=== PATIENT | female | born 1950 | race Caucasian/White ===

== ENCOUNTER 2017-02-22 21:02 | Emergency (ER) | payer MEDICARE, BC ==
[2017-02-22 21:42] VITALS: BP 140/86
--- NOTE | 2017-02-22 21:58 | EDM.PDOC ---
ED HPI GENERAL MEDICAL PROBLEM - General Chief Complaint: Bite:Animal, Insect Stated Complaint: WASP STING L PALM Time Seen by Provider: 02/22/17 21:46 Source of Information: Reports: Patient History Limitations: Reports: No Limitations - History of Present Illness INITIAL COMMENTS - FREE TEXT/NARRATIVE: History of present illness: [67-year-old female was stung by a wasp on her left hand yesterday presenting with some swelling of the hyperthenar eminence of her left hand. She has no respiratory symptoms she has some pain and discomfort as well.] Review of systems: As per history of present illness and below otherwise all systems reviewed and negative. Past medical history: As per history of present illness and as reviewed below otherwise noncontributory. Surgical history: As per history of present illness and as reviewed below otherwise noncontributory. Social history: No reported history of drug or alcohol abuse. Family history: As per history of present illness and as reviewed below otherwise noncontributory. Physical exam: HEENT: Atraumatic, normocephalic, pupils reactive, negative for conjunctival pallor or scleral icterus, mucous membranes moist, throat clear, neck supple, nontender, trachea midline. Lungs: Clear to auscultation, breath sounds equal bilaterally, Heart: S1S2, regular, negative for clicks, rubs, or JVD. Abdomen: Soft, nondistended, nontender. Extremities: Examination of left hand reveals swelling of the hyperthenar eminence with some erythema and mottling of the skin and tenderness to palpation. There is no warmth or evidence of infection Neuro: Awake, alert, oriented. Exam nonfocal. Diagnostics: [] Therapeutics: [] Impression: [Wasp sting left hand] Plan: [Providing her prednisone 20 mg a day for 5 days and recommended she take over- the-counter Benadryl.] Definitive disposition and diagnosis as appropriate pending reevaluation and review of above. Left Hand Pain Score (Numeric/FACES): 2 - Related Data Allergies Allergy/AdvReac Type Severity Reaction Status Date / Time clarithromycin [From Biaxin] Allergy Severe muscle Verified 02/22/17 21:53 spasm and shaking Home Meds: Home Meds Calcium Carb/Magnesium Oxid/D3 [Calcium Magnesium + D] 1 each PO BID 05/21/13 [ History] Cholecalciferol (Vitamin D3) [Vitamin D] 400 unit PO DAILY 05/21/13 [History] Flaxseed [Flaxseed Oil] 2,000 mg PO DAILY 05/21/13 [History] Gluc/Barak-Msm#1/Vit C/Karthikeyan/Bor [Pottneo-Xcmoq-VLM Complex Cplt] 1 each PO BID [History] Lactobac Cmb #3/Fos/Pantethine [Probiotic & Acidophilus] 1 each PO DAILY [History] Lisinopril [Lisinopril] 10 mg PO DAILY 05/21/13 [History] Multivitamin [Multi-Vitamin Daily] 1 each PO DAILY 05/21/13 [History] Triamterene/Hydrochlorothiazid [Triamterene-HCTZ 37.5-25 MG] 1 each PO DAILY [History] Social & Family History - Tobacco Use Years of Tobacco use: 20 Second Hand Smoke Exposure: No - Alcohol Use Days Per Week of Alcohol Use: 5 Number of Drinks Per Day: 1 Total Drinks Per Week: 5 - Recreational Drug Use Recreational Drug Use: No ED ROS GENERAL - Review of Systems Review Of Systems: ROS reveals no pertinent complaints other than HPI. ED EXAM, ANIMAL BITE - Physical Exam Exam: See Below Course - Vital Signs Last Recorded V/S: Last Vital Signs Temp 35.9 C 02/22/17 21:50 Pulse 93 02/22/17 21:50 Resp 16 02/22/17 21:50 BP 140/86 02/22/17 21:50 Pulse Ox 94 L 02/22/17 21:50 Departure - Departure Time of Disposition: 21:57 Disposition: Home, Self-Care 01 Condition: Good Clinical Impression: Sting, wasp Qualifiers: Encounter type: initial encounter Injury intent: accidental or unintentional Qualified Code(s): T63.461A - Toxic effect of venom of wasps, accidental ( unintentional), initial encounter - Discharge Information Referrals: Esperanza Hendrix HEARING DOG TRAINER [Primary Care Provider] - Additional Instructions: You can take Benadryl 1-2 tablets every 4 hours for this to help with the swelling and discomfort along with Advil or Tylenol. The Benadryl will likely make you sleepy but will help.
== END 2017-02-22 22:16 | disposition home or self-care (01) ==
LOC: JP.ED 21:02
DX: T63.461A Toxic effect of venom of wasps, accidental (unintentional), initial encounter (principal); Z88.1 Allergy status to other antibiotic agents; Z79.899 Other long term (current) drug therapy
CPT/HCPCS: 99283; 99284

== ENCOUNTER 2019-01-05 06:32 | Inpatient (IN) | payer MEDICARE, BC ==
[2019-01-05] MEDS ORDERED: Midazolam 1 MG/ML 2 ML SDV ONE (07:22)
[2019-01-05] MEDS ORDERED: Propofol 200 MG/20 ML SDV ONE ×2 (07:22→07:49)
[2019-01-05] MEDS ORDERED: fentaNYL 100 MCG/2 ML SDV ONE (07:22)
[2019-01-05] MEDS ORDERED: Dextrose 5%-Lactated Ringers 1,000 ML IV SCH (07:30)
[2019-01-05] MEDS ORDERED: ePHEDrine 50 MG/ML SDV ONE (08:06)
[2019-01-05] MEDS ORDERED: Ondansetron 4 MG/2 ML SDV IVPUSH ONE (08:32)
[2019-01-05] MEDS ORDERED: hydrOXYzine HCl 100 MG/2 ML SDV IM ONE (08:57)
[2019-01-05] MEDS ORDERED: Acetaminophen 500 MG Tab PO ONE (10:13)
--- NOTE | 2019-01-05 14:47 | CRLCT ---
INDICATION: Abdominal pain after colonoscopy this morning TECHNIQUE: CT abdomen and pelvis without contrast. COMPARISON: March 05, 2019 FINDINGS: Lower chest: Coronary artery calcifications. Scattered linear atelectasis or scarring. Small hiatal hernia. Liver: Unremarkable. Spleen: Heterogeneous appearance of the spleen with perisplenic hemorrhage. Small to moderate amount of hemoperitoneum throughout the remainder of the abdomen and pelvis. Pancreas: Unremarkable. Gallbladder and bile ducts: S/p cholecystectomy. Adrenal glands: Unremarkable. Kidneys: Unremarkable. No kidney or ureteral stones and no hydronephrosis. GI tract: Unremarkable. No free air. Vascular structures: Unremarkable. Lymph nodes: Calcified lymph node in the gastrohepatic ligament. Miscellaneous: Small fat containing umbilical hernia. Pelvic Organs: Unremarkable. Bones: Sub centimeter sclerotic bone lesion in the T11 vertebrae is stable since March 05, 2011. IMPRESSION: Splenic injury with small to moderate amount of hemoperitoneum. Recommend CT abdomen pelvis with arterial and portal venous imaging to evaluate for grade of splenic injury and any presence of active bleeding or pseudoaneurysm. These findings were discussed with Dr. Teddy Moore at 2:46 p.m. on January 05, 2019. Coronary artery disease. Small hiatal hernia. Status post cholecystectomy. Please note that all CT scans at this facility use dose modulation, iterative reconstruction, and/or weight-based dosing when appropriate to reduce radiation dose to as low as reasonably achievable. Dictated by Esperanza Casey MD @ Jan 05 2019 2:40PM (Electronically Signed)
[2019-01-05] MEDS ORDERED: Iopamidol 612 MG/ML 150 ML Bottle IV PRN (14:55)
[2019-01-05] MEDS ORDERED: Sodium Chloride 0.9% 10 ML Syringe FLUSH PRN (14:55)
[2019-01-05] MEDS ORDERED: Sodium Chloride 0.9% 80 ML IV SCH (15:00)
[2019-01-05] MEDS ORDERED: HYDROmorphone/Normal Saline 15 MG/30 ML PCA IV PRN (15:27)
[2019-01-05] MEDS ORDERED: Naloxone 0.4 MG/ML SDV IV PRN (15:27)
[2019-01-05] MEDS ORDERED: Tranexamic Acid 1,000 MG in Sodium Chloride 0.9% 50 ML IV ONE ×2 (16:00→18:30)
[2019-01-05] MEDS: Dextrose 5%-Lactated Ringers 1,000 ML IV SCH (16:24)
--- NOTE | 2019-01-05 16:39 | CRLCT ---
INDICATION: Follow-up splenic injury. Abdominal pain after colonoscopy this morning. COMPARISON: CT of the abdomen and pelvis without contrast from today at 1419 hours TECHNIQUE: CT examination of the abdomen and pelvis was performed at 1535 hours with the uneventful intravenous administration of 100 cc of Omnipaque 350 while 3 mm thick axial sections were obtained from the lung bases through the pubic symphysis. Examination is performed during the arterial and venous phases. Oral contrast was not administered. Please note that all CT scans at this facility use dose modulation, iterative reconstruction, and/or weight-based dosing when appropriate to reduce radiation dose to as low as reasonably achievable. FINDINGS: There is a stable mild amount of free fluid in the abdomen, around the liver and spleen. There is a stable moderate amount of high-density fluid in the left pericolic gutter consistent with a hematoma. There is a stable moderate amount of free fluid in the pelvis. The findings are consistent with hemoperitoneum related to splenic injury. There is a moderate-sized lateral subcapsular hematoma measuring 6.3 x 2.3 x 6.4 centimeters. There is a linear area of hypodensity along the anterior midbody of the spleen consistent with a splenic laceration. There is no sign of active extravasation of contrast from the spleen or subcapsular region. In the abdomen, the liver has a lobular low-density 1.4 centimeter subcapsular structure in the posterior segment of the right lobe, between segments 6 and 7. This is probably a hemangioma. A similar tiny hypodensity is seen more inferiorly in the posterior segment of the right lobe, segment 6. The pancreas and adrenals are normal in appearance. There is a tiny cyst in the interpolar left kidney. The kidneys are otherwise normal in appearance. Clips are again seen in the gall bladder fossa from cholecystectomy. There is moderate dilatation of the common bile duct, measuring 12 millimeters in caliber, and mild intrahepatic biliary ductal dilatation consistent with post cholecystectomy status. The abdominal aorta is normal in caliber with no sign of dilatation. There is no sign of retroperitoneal mass or adenopathy. There is a small hiatal hernia. The rest of the stomach, loops of small bowel, and colon in the abdomen are otherwise normal in appearance. There is a tiny fat containing periumbilical hernia. In the pelvis, the appendix is nonvisualized, but there is no sign of an inflammatory process in the area of the appendix. The loops of small bowel and colon in the pelvis are normal in appearance. The uterus and adnexal regions are normal in appearance. As mentioned above, there is moderate free fluid in the pelvis consistent with hemoperitoneum. The urinary bladder is normal in appearance. There is no sign of pelvic or inguinal mass or adenopathy. There is stable mild left greater than right basilar linear atelectasis. The osseous structures are normal in appearance for the patient`s age. IMPRESSION: No change in moderate free fluid in the abdomen and pelvis, with moderate amount of high-density fluid in the left pericolic gutter consistent with hemorrhage. CT of the abdomen shows a lateral splenic subcapsular hematoma measuring 6.3 x 2.3 x 6.4 centimeters, as well as a laceration of the anterior body of the spleen. No sign of extravasation of contrast from the spleen to suggest active hemorrhage. Status post cholecystectomy with mild intrahepatic and moderate extrahepatic biliary ductal dilatation. Probable hemangioma in the posterior segment of the right lobe of the liver. CT of the pelvis shows a moderate amount of free fluid, unchanged compared to the previous study. Please note that all CT scans at this facility use dose modulation, iterative reconstruction, and/or weight-based dosing when appropriate to reduce radiation dose to as low as reasonably achievable. Dictated by Julián Asher MD @ Jan 05 2019 4:19PM Signed by Dr. Julián Asher @ Jan 05 2019 4:37PM
[2019-01-05] MEDS: Ondansetron 4 MG/2 ML SDV IVPUSH PRN (19:07)
[2019-01-06] MEDS: Dextrose 5%-Lactated Ringers 1,000 ML IV SCH (00:10)
[2019-01-06] MEDS ORDERED: Dextrose 5%-Lactated Ringers 1,000 ML IV SCH (08:45)
[2019-01-06] MEDS: Ondansetron 4 MG/2 ML SDV IVPUSH PRN (10:03)
[2019-01-06] MEDS: Magnesium Sulfate/Water 2 GM in Premix Bag 1 BAG IV SCH ×3 (10:08→22:12)
[2019-01-06] MEDS: Docusate Sodium 100 MG Cap PO SCH ×2 (10:10→22:12)
[2019-01-06] MEDS: Hydrochlorothiazide 25 MG Tab PO SCH (10:10)
[2019-01-06] MEDS: Potassium Phosphates 22.5 MMOLE in Sodium Chloride 0.9% 250 ML IV SCH ×2 (12:27→18:40)
[2019-01-07] MEDS: Magnesium Sulfate/Water 2 GM in Premix Bag 1 BAG IV SCH ×3 (02:37→19:59)
[2019-01-07] MEDS ORDERED: Dextrose 5%-Lactated Ringers 1,000 ML IV SCH (07:45)
[2019-01-07] MEDS: Acetaminophen/HYDROcodone 325-5 MG Tab PO PRN ×3 (08:13→21:45)
[2019-01-07] MEDS: Docusate Sodium 100 MG Cap PO SCH ×2 (08:16→20:06)
[2019-01-07] MEDS: Hydrochlorothiazide 25 MG Tab PO SCH (08:16)
[2019-01-07] MEDS: Potassium Phosphates 20 MMOLE in Sodium Chloride 0.9% 250 ML IV SCH ×4 (13:03→23:08)
[2019-01-07] MEDS: Dextrose 5%-Lactated Ringers 1,000 ML IV SCH ×2 (14:11→22:59)
[2019-01-08] MEDS ORDERED: Magnesium Sulfate/Water 2 GM in Premix Bag 1 BAG IV SCH (02:00)
[2019-01-08] MEDS: Magnesium Sulfate/Water 2 GM in Premix Bag 1 BAG IV SCH ×3 (02:04→07:42)
[2019-01-08] MEDS: Acetaminophen/HYDROcodone 325-5 MG Tab PO PRN ×5 (03:08→21:33)
[2019-01-08] MEDS: Docusate Sodium 100 MG Cap PO SCH ×2 (10:07→21:33)
[2019-01-08] MEDS: Hydrochlorothiazide 25 MG Tab PO SCH (10:07)
--- NOTE | 2019-01-08 11:41 | PN ---
DATE OF SERVICE: 01/06/2019 The patient has been hemodynamically stable overnight with adequate urine output. Hemoglobin did drop to 9.0, which I would expect active bleeding. The plan today will be to move up to second floor, begin little bit of getting up in the chair, bathroom privileges today, and continue to monitor vital signs and hemoglobin. Her potassium and magnesium were somewhat low, and these will be supplemented IV. We will otherwise back down the IV rate and begin the regular diet and some Colace along with LUBRICATION SERVICER for pain control. Arpit Moore MD /[id number]
--- NOTE | 2019-01-08 12:32 | PN ---
DATE OF SERVICE: 01/07/2019 The patient has been afebrile with stable vital signs, aside from a little bit of a cough. So, we will begin today. Otherwise, potassium was still somewhat low. We will give her some additional IV K-Phos and go over to oral pain medication today. Hemoglobin is stable at 9.0, and will likely be able to be discharged home tomorrow. Arpit Moore MD /[id number]
--- NOTE | 2019-01-08 13:06 | PCM.CONS ---
H&P History of Present Illness - General Date of Service: 01/08/19 Source of Information: Patient, RN History Limitations: Reports: No Limitations - History of Present Illness Initial Comments - Free Text/Narative: I was asked to see Mary today by Oneida Prabhakar regarding hypoxia. She was initially admitted on January 05 after a colonoscopy and unfortunate splenic laceration with splenic hematoma. The plan was for her to go home today but she has been persistently hypoxic throughout the hospital stay and was unable to be weaned from her supplemental oxygen. The patient does report a dry cough with occasional clear sputum. She does not feel significantly short of breath. She has not had any fevers. She does not have any chest pain. She does report moderate left upper quadrant pain from the hematoma. She does not have a history of asthma or COPD. She has not been having any fevers. She has been up and walking around and feels well and would like to go home. Oxygen saturations without supplemental oxygen at this time are in the low to mid 80s. She does respond well to supplemental oxygen. Abdomen Pain Score (Numeric/FACES): 2 - Related Data Allergies/Adverse Reactions: Allergies Allergy/AdvReac Type Severity Reaction Status Date / Time clarithromycin [From Biaxin] Allergy Severe muscle Verified 01/05/19 06:53 spasm and shaking Home Medications: Home Meds Calcium Carb/Magnesium Oxid/D3 [Calcium Magnesium + D] 1 each PO BID 05/21/13 [ History] Cholecalciferol (Vitamin D3) [Vitamin D] 800 unit PO BID 05/21/13 [History] Gluc/Barak-Msm#1/Vit C/Karthikeyan/Bor [Dettndd-Blkps-JCA Complex Cplt] 1 each PO BID [History] Lactobac Cmb #3/Fos/Pantethine [Probiotic & Acidophilus] 1 each PO BID 05/21/13 [History] Multivitamin [Multi-Vitamin Daily] 1 each PO DAILY 05/21/13 [History] hydroCHLOROthiazide [Hydrochlorothiazide] 25 mg PO DAILY 02/22/17 [History] Aspirin [[place] Chewable] 81 mg PO DAILY 01/03/19 [History] Acetaminophen/HYDROcodone [[place] 325-5 MG] 1 tab PO Q6H PRN #28 tablet 01/08/19 [Rx] Past Medical History HEENT History: Reports: Allergic Rhinitis, Impaired Vision Cardiovascular History: Reports: Heart Murmur, Hypertension Gastrointestinal History: Reports: Colon Polyp, GERD, Hiatal Hernia Genitourinary History: Reports: None 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: Musculoskeletal History: Reports: Osteoarthritis Endocrine/Metabolic History: Reports: Obesity/BMI 30+, Osteopenia - Infectious Disease History Infectious Disease History: Reports: Chicken Pox, Measles, Mumps, Rheumatic Fever - Past Surgical History HEENT Surgical History: Reports: None Cardiovascular Surgical History: Reports: None GI Surgical History: Reports: Cholecystectomy, Colonoscopy, EGD, Hernia Repair/ Other Female Surgical History: Reports: Breast Biopsy Endocrine Surgical History: Reports: None Musculoskeletal Surgical History: Reports: None Dermatological Surgical History: Reports: None Social & Family History - Family History Family Medical History: Noncontributory - Tobacco Use Smoking Status *Q: Never Smoker Years of Tobacco use: 25 Packs/Tins Daily: 0.5 Used Tobacco, but Quit: Yes Month/Year Tobacco Last Used: 2013 Second Hand Smoke Exposure: No - Caffeine Use Caffeine Use: Reports: Coffee - Alcohol Use Days Per Week of Alcohol Use: 2 Number of Drinks Per Day: 1 Total Drinks Per Week: 2 - Recreational Drug Use Recreational Drug Use: No H&P Review of Systems - Review of Systems: Review Of Systems: See Below Free Text/Narrative: A complete 12 point review of systems was obtained. Pertinent positives and negatives are noted in the history of present illness. All other systems were reviewed and were negative except as noted. Exam - Exam Exam: See Below - Vital Signs Vital Signs: Last Vital Signs Temp 36.4 C 01/08/19 10:39 Pulse 66 01/08/19 10:39 Resp 16 01/08/19 10:39 BP 121/59 L 01/08/19 10:39 Pulse Ox 93 L 01/08/19 10:39 Weight: 88.451 kg - Exam Quality Assessment: Supplemental Oxygen General: Alert, Oriented, Cooperative. No: Mild Distress HEENT: Conjunctiva Clear, Mucosa Moist & [place]. No: Scleral Icterus Neck: Supple, +2 Carotid Pulse wo Bruit Lungs: Normal Respiratory Effort, Decreased Breath Sounds (both bases), Crackles (both bases) Cardiovascular: Regular Rate, Regular Rhythm, Systolic Murmur GI/Abdominal Exam: Soft, No Distention Extremities: No Pedal Edema. No: Increased Warmth Skin: Warm, Dry Neuro Extensive - Mental Status: Alert, Oriented x3, Nl Response to Commands Neuro Extensive - Motor, Sensory, Reflexes: No: Dysarthria, Abnormal Motor, Tremor Psychiatric: Alert, Normal Affect - Patient Data Lab Results Last 24 hrs: Laboratory Results - last 24 hr 01/08/19 01/08/19 Range/Units 04:05 04:10 WBC 6.8 (4.5-11.0) K/uL RBC 2.54 L (3.30-5.50) M/uL Hgb 8.5 L (12.0-15.0) g/dL Hct 26.6 L (36.0-48.0) % MCV 105 H (80-98) fL MCH 34 H (27-31) pg MCHC 32 (32-36) % Plt Count 231 (150-400) K/uL Neut % (Auto) 64 (36-66) % Lymph % (Auto) 25 (24-44) % [place] % (Auto) 9 H (2-6) % Eos % (Auto) 2 (2-4) % Baso % (Auto) 0 (0-1) % Sodium 142 (140-148) mmol/L Potassium 4.2 (3.6-5.2) mmol/L Chloride 105 (100-108) mmol/L Carbon Dioxide 33 H (21-32) mmol/L Anion Gap 8.2 (5.0-14.0) mmol/L BUN 5 L (7-18) mg/dL Creatinine 0.7 (0.6-1.0) mg/dL Est Cr Clr Drug Dosing 70.06 mL/min Estimated GFR (MDRD) > 60 (>60) Glucose 107 H (74-106) mg/dL Calcium 7.4 L (8.5-10.1) mg/dL Phosphorus 3.7 (2.5-4.9) mg/dL Total Bilirubin 0.8 D (0.2-1.0) mg/dL AST 182 H D (15-37) U/L ALT 168 H (12-78) U/L Alkaline Phosphatase 106 (46-116) U/L Total Protein 4.9 L (6.4-8.2) g/dL Albumin 2.1 L (3.4-5.0) g/dL Globulin 2.8 (2.3-3.5) g/dL Albumin/Globulin Ratio 0.8 L (1.2-2.2) Result Diagrams: 01/08/19 04:10 01/08/19 04:05 Imaging Impressions Last 24 hrs: CXR - images personally reviewed - lungs are clear with no obvious infiltrate or effusion. Left hemidiaphragm does seem mildly elevated compared to what I would expect is normal. There may be some atelectasis on the left side. Heart size is normal. Consult PN Assessment/Plan POD#: 3 Procedures: Procedures COLONOSCOPY AND BIOPSY (05/22/13) COMP SCREEN MAMMOGRAM ADD-ON (01/05/16) CT ABD & PELV W/CONTRAST (06/26/13) CT THORAX W/DYE (06/26/13) CULTURE SCREEN ONLY (05/22/13) DX MAMMO INCL CAD UNI (03/30/18) EGD BIOPSY SINGLE/MULTIPLE (05/22/13) EMERGENCY DEPT VISIT (02/22/17) SCR MAMMO BI INCL CAD (03/28/18) X-RAY EXAM SERIES ABDOMEN (05/22/13) Problem List Initiated/Reviewed/Updated: Yes My Orders Last 24 Hours: My Active Orders 01/08/19 13:02 CXR [Chest 1V Frontal] [CR] Routine Furosemide [Lasix] 20 mg IVPUSH ONETIME ONE Plan: ASSESSMENT AND PLAN - Hypoxia - no strong evidence to support infection at this time. Could be multifactorial with contribution from mild volume overload as patient is up more than 6 L since admission as well as atelectasis and probably impaired diaphragm mobility. No history of lung disease. Symptomatically she is doing well. Examination relatively benign other than diminished lung sounds and a few crackles. Chest x-ray did not show pneumonia. -Furosemide 20 mg IV 1 now -Monitor intake and output -Incentive spirometer -Supplement oxygen as needed Splenic laceration with anemia due to blood loss - hemoglobin stable. Pain well- controlled. -Postoperative care per surgical team Geovanny Courtney M.D. Requesting Provider: Oneida Prabhakar Date Consult Requested: 01/08/19 Reason for Consult: hypoxia Patient History Reviewed: Yes Admission H&P Reviewed: Yes Notified Requestor: No Time Spent (in minutes): 50
[2019-01-08] MEDS ORDERED: Furosemide 20 MG/2 ML VIAL IVPUSH ONE ×2 (13:30→20:00)
--- NOTE | 2019-01-08 13:56 | DISCH ---
ADMISSION DIAGNOSES: 1. Colonoscopy with polypectomy. 2. Perisplenic hemorrhage. 3. Systolic murmur. 4. Hyperlipidemia. 5. Long QT syndrome. 6. Hypertension. 7. Stress incontinence. DISCHARGE DIAGNOSIS: Resolution of perisplenic hemorrhage. HISTORY: Mary Bhandari is a 68-year-old female who has had a history of colitis as well, and was at one point, diagnosed with irritable bowel syndrome. She was due for a routine colonoscopy. Mary had her colonoscopy on 01/05/2019. She had persistent abdominal pain and weakness. CT scan did show a heterogenous appearance of the spleen with perisplenic hemorrhage, small to moderate amount of hemoperitoneum. She was admitted to the hospital on 01/05/2019. Condition was monitored. Pain was well managed. Vital signs remained stable with the exception of her blood pressure was low, so lisinopril was held. LABORATORY REPORTS: Hemoglobin of 9.7 on admission; then next a.m. it was 9; then on 01/06/2019 at 1600 it was 9.5; and on 01/07/2019 at 0400, it was 9; and on 01/08/2019 at 0400, it was 8.5. Rest of the labs revealed an AST 182, ALT 168, alkaline phos is 106, total bilirubin is 0.8. REVIEW OF SYSTEMS: GENERAL: Has had no fever, chills, night sweats, or fatigue. HEENT: Negative. NECK: Negative. HEART: No chest pain, shortness of breath, fast or irregular heart beat. She is scheduled for an echocardiogram due to systolic murmur this morning at 0800. This will be scheduled, so she can have it done before she is discharged. LUNGS: No shortness of breath. ABDOMEN: Pain on the pain scale 1 to 10. The highest is a 4/10. She does get [place] for pain, which results in pain scale 0 to 10/10. Oral intake was 720 and urine output 1650. EXTREMITIES: Without peripheral edema. No joint pain or swelling. SKIN: Without rash. NEUROLOGIC: No headache, dizziness, loss of coordination. PSYCHIATRIC: Negative for depression, anxiety, or insomnia. Remainder of review of systems negative for any pertinent positives and negatives. OBJECTIVE: GENERAL: Mary Bhandari is a pleasant 68-year-old female. VITAL SIGNS: Height is 5 feet 4.96 inches, weight is 195 pounds. TPR is 97.2, 70, 16, blood pressure 96/38. HEENT: Negative. NECK: Supple. HEART: Regular rate and rhythm. LUNGS: Clear. ABDOMEN: Soft, nontender. EXTREMITIES: Without peripheral edema. DISPOSITION: Discharged to home. CONDITION: Stable and improving. FOLLOWUP: Followup appointment with Arpit Moore MD, on 01/10/2019 at 10:30 a.m. Have a CBC and CMP done at 10 a.m. HOME MEDICATIONS: [place] 5/325 mg, take one every 6 hours p.r.n. pain #24. HOME MEDICATIONS: 1. Hold lisinopril and monitor blood pressure at home. 2. Aspirin 81 mg daily. 3. Calcium 1 tablet twice daily. 4. Vitamin D3 800 units oral twice daily. 5. Glucosamine 1 twice daily. 6. Probiotic one daily. 7. Multivitamin one daily. 8. Hydrochlorothiazide 25 mg oral daily. DISCHARGE DIET: Usual diet as tolerated. Drink 8 to 10 glasses of water a day. ACTIVITY: No lifting greater than 10 pounds for 6 weeks. Other activity; walk as tolerated. Do not drive while on narcotic pain medication. Shower/bathing: May shower. DISCHARGE INSTRUCTIONS: Notify provider if any fever, increased pain, nausea, or vomiting.
--- NOTE | 2019-01-08 15:48 | CR ---
Chest 1V Frontal: 01/08/2019 1:07 PM INDICATION: hypoxia COMPARISON: Chest CT performed 06/26/2013. TECHNIQUE: Single AP view of the chest was obtained. FINDINGS: There is mild elevation of the left hemidiaphragm. There is associated streaky opacity present at the left lung base. This likely represents atelectasis, however infiltrate is not excluded. Minimal streaky right basilar opacity is also present. Cardiomediastinal silhouette is mildly enlarged. No acute osseous abnormalities. IMPRESSION: 1. Mild left hemidiaphragmatic elevation. 2. Left greater than right streaky basilar opacities are favored to relate to atelectasis, however infection is not excluded. 3. Moderate cardiomegaly.
[2019-01-09] MEDS: Acetaminophen/HYDROcodone 325-5 MG Tab PO PRN ×5 (02:57→18:28)
--- NOTE | 2019-01-09 08:51 | PN ---
DATE OF SERVICE: 01/05/2019 The patient underwent a colonoscopy today. She had 3 small polyps removed, 2 from the ascending colon and 1 from the distal sigmoid colon. She had quite a bit of discomfort postoperatively and felt pain when she was trying to sit up, and it seemed likely the patient had a perforation of the colon, given the limited extent of the polypectomies. These were quite superficial and small, but given the continued pain, we did obtain a CT scan. This showed no areas of perforation, but did show quite a bit of blood around the spleen. The initial CAT scan was done without contrast and then repeated one with IV contrast. This was done an hour and half after the first one. There was no expansion of hematoma and no evidence of any active bleeding on either the arterial or venous phases. Her hemoglobin was 11.1 and did drop to 9.7 at 5:00 p.m., but the patient remained hemodynamically stable. She has been unable to void on the bedpan, so a Rodriguez catheter will be placed. We will monitor the patient in the ICU overnight. If she is remained stable, probably get her up to second floor tomorrow. I will keep her n.p.o. except ice chips for now in case we need to do something operatively, but at this point, this appears to be a case that we will more than likely be able to treat nonoperatively in terms of the splenic injury. Arpit Moore MD /[id number]
[2019-01-09] MEDS: Hydrochlorothiazide 25 MG Tab PO SCH (08:53)
[2019-01-09] MEDS: Bisacodyl 5 MG Tab PO SCH ×2 (08:53→21:42)
[2019-01-09] MEDS: Docusate Sodium 100 MG Cap PO SCH ×2 (08:54→21:42)
[2019-01-09] MEDS ORDERED: Furosemide 20 MG/2 ML VIAL IVPUSH ONE (09:00)
--- NOTE | 2019-01-09 11:49 | PCM.CONSN ---
- General Info Date of Service: 01/09/19 Subjective Update: No acute events overnight. Patient was feeling better with diuresis and did have a good response. She did continue to require a small amount of supplemental oxygen overnight. She was more short of breath this morning and frustrated but feeling better now after some additional diuresis this morning. No fevers. Pain well-controlled. Functional Status: Reports: Pain Controlled, Tolerating Diet - Review of Systems Pulmonary: Reports: Shortness of Breath Gastrointestinal: Reports: Abdominal Pain - Patient Data Vitals - Most Recent: Last Vital Signs Temp 35.7 C 01/09/19 11:19 Pulse 67 01/09/19 11:19 Resp 16 01/09/19 11:19 BP 116/62 01/09/19 11:19 Pulse Ox 93 L 01/09/19 11:19 Weight - Most Recent: 88.451 kg I&O - Last 24 Hours: Intake & Output 01/08/19 01/09/19 01/09/19 22:59 06:59 14:59 Intake Total 1000 600 Output Total 2650 1000 Balance -1650 -400 Lab Results Last 24 Hours: Laboratory Results - last 24 hr 01/05/19 01/09/19 Range/Units 20:00 07:41 Magnesium 2.0 D (1.8-2.4) mg/dL NT-Pro-B Natriuret Pep 839 H (5-125) pg/mL Crossmatch See Detail Med Orders - Current: Current Medications Hydrocodone Bitart/Acetaminophen ([place] 325-5 Mg) 1 - 2 tab PO Q4H PRN PRN Reason: PAIN Last Admin: 01/09/19 08:50 Dose: 2 tab Bisacodyl (Dulcolax) 10 mg PO BID [facility] Last Admin: 01/09/19 08:53 Dose: 10 mg Calcium Carbonate/Glycine (Tums) 1,000 mg PO Q2HR PRN PRN Reason: Indigestion Docusate Sodium (Colace) 100 mg PO BID [facility] Last Admin: 01/09/19 08:54 Dose: 100 mg Furosemide (Lasix) 40 mg IVPUSH ONETIME ONE Stop: 01/09/19 11:44 Hydrochlorothiazide (Hydrochlorothiazide) 25 mg PO DAILY [facility] Last Admin: 01/09/19 08:53 Dose: 25 mg Ondansetron HCl (Zofran) 4 mg IVPUSH Q4H PRN PRN Reason: Nausea Last Admin: 01/06/19 10:03 Dose: 4 mg Discontinued Medications Acetaminophen (Tylenol Extra Strength) 1,000 mg PO ONETIME ONE Stop: 01/05/19 10:14 Last Admin: 01/05/19 10:19 Dose: 1,000 mg Ephedrine Sulfate (Ephedrine Sulfate) Confirm Administered Dose 50 mg .ROUTE .STK-MED ONE Stop: 01/05/19 08:07 Fentanyl (Sublimaze) Confirm Administered Dose 100 mcg .ROUTE .STK-MED ONE Stop: 01/05/19 07:23 Furosemide (Lasix) 20 mg IVPUSH ONETIME ONE Stop: 01/08/19 13:31 Last Admin: 01/08/19 13:32 Dose: 20 mg Furosemide (Lasix) 20 mg IVPUSH ONETIME ONE Stop: 01/08/19 20:01 Last Admin: 01/08/19 20:09 Dose: 20 mg Furosemide (Lasix) 20 mg IVPUSH ONETIME ONE Stop: 01/09/19 09:01 Last Admin: 01/09/19 08:54 Dose: 20 mg Hydromorphone HCl (Dilaudid Crane Engineer 15 Mg In Ns 30 Ml) 0 mg IV ASDIRECTED PRN; Protocol PRN Reason: DENTAL HYGIENIST PAIN CONTROL Last Admin: 01/05/19 15:43 Dose: 0.2 mg Hydroxyzine HCl (Vistaril) 100 mg IM ONETIME ONE Stop: 01/05/19 08:58 Last Admin: 01/05/19 09:05 Dose: 100 mg Dextrose/Lactated Ringer's (Dextrose 5%-Lactated Ringers) 1,000 mls @ 100 mls/ hr IV ASDIRECTED [place] Last Admin: 01/05/19 07:15 Dose: 100 mls/hr Sodium Chloride (Normal Saline) 80 mls @ 3.5 mls/sec IV ASDIRECTED [place] Stop: 01/05/19 15:01 Last Admin: 01/05/19 15:12 Dose: 3.5 mls/sec Tranexamic Acid 1,000 mg/ (Sodium Chloride) 60 mls @ 240 mls/hr IV ONETIME ONE Stop: 01/05/19 16:14 Last Admin: 01/05/19 15:20 Dose: 240 mls/hr Dextrose/Lactated Ringer's (Dextrose 5%-Lactated Ringers) 1,000 mls @ 125 mls/ hr IV ASDIRECTED [facility] Last Admin: 01/06/19 00:10 Dose: 125 mls/hr Tranexamic Acid 1,000 mg/ (Sodium Chloride) 60 mls @ 240 mls/hr IV ONETIME ONE Stop: 01/05/19 18:44 Last Admin: 01/05/19 18:22 Dose: 240 mls/hr Magnesium Sulfate 2 gm/ Premix 50 mls @ 25 mls/hr IV Q6H [facility] Stop: 01/08/19 04:59 Last Admin: 01/08/19 02:04 Dose: Not Given Dextrose/Lactated Ringer's (Dextrose 5%-Lactated Ringers) 1,000 mls @ 80 mls/ hr IV ASDIRECTED [facility] Last Admin: 01/07/19 00:48 Dose: 80 mls/hr Potassium Phosphate 22.5 mmole (/ Sodium Chloride) 257.5 mls @ 65 mls/hr IV Q4H [facility] Stop: 01/06/19 18:58 Last Admin: 01/06/19 18:40 Dose: 65 mls/hr Dextrose/Lactated Ringer's (Dextrose 5%-Lactated Ringers) 1,000 mls @ 60 mls/ hr IV ASDIRECTED [facility] Potassium Phosphate 20 mmole/ (Sodium Chloride) 256.6667 mls @ 85 mls/hr IV Q3H [facility] Stop: 01/07/19 18:29 Last Admin: 01/07/19 23:08 Dose: Not Given Dextrose/Lactated Ringer's (Dextrose 5%-Lactated Ringers) 1,000 mls @ 100 mls/ hr IV ASDIRECTED [facility] Last Admin: 01/07/19 22:59 Dose: 100 mls/hr Magnesium Sulfate 2 gm/ Premix 50 mls @ 25 mls/hr IV Q6H [facility] Stop: 01/09/19 21:59 Magnesium Sulfate 2 gm/ Premix 50 mls @ 25 mls/hr IV Q6H [facility] Stop: 01/08/19 09:59 Last Admin: 01/08/19 07:42 Dose: 25 mls/hr Iopamidol (Isovue-300 (61%)) 132 ml IV . DIRECTED PRN PRN Reason: RADIOLOGY EXAM Stop: 01/06/19 14:56 Last Admin: 01/05/19 15:12 Dose: 132 ml Midazolam HCl (Versed 1 Mg/Ml) Confirm Administered Dose 2 mg .ROUTE .STK-MED ONE Stop: 01/05/19 07:23 Naloxone HCl (Narcan) 0.1 mg IV ASDIRECTED PRN PRN Reason: decreased respiratory rate Ondansetron HCl (Zofran) 4 mg IVPUSH ONETIME ONE Stop: 01/05/19 08:33 Last Admin: 01/05/19 08:35 Dose: 4 mg Propofol (Diprivan 20 Ml) Confirm Administered Dose 200 mg .ROUTE .STK-MED ONE Stop: 01/05/19 07:23 Propofol (Diprivan 20 Ml) Confirm Administered Dose 200 mg .ROUTE .STK-MED ONE Stop: 01/05/19 07:50 Sodium Chloride (Saline Flush) 10 ml FLUSH ONETIME PRN PRN Reason: per radiology protocol Stop: 01/05/19 14:56 Last Admin: 01/05/19 15:12 Dose: 10 ml - Exam Quality Assessment: Supplemental Oxygen General: Alert, Oriented, Cooperative, No Acute Distress Lungs: Normal Respiratory Effort, Decreased Breath Sounds (both bases), Crackles (few at bases ) Cardiovascular: Regular Rate, Regular Rhythm GI/Abdominal Exam: Soft, No Distention Extremities: No Pedal Edema Psy/Mental Status: Alert, Normal Affect Consult PN Assessment/Plan POD#: 4 Procedures: Procedures COLONOSCOPY AND BIOPSY (05/22/13) COMP SCREEN MAMMOGRAM ADD-ON (01/05/16) CT ABD & PELV W/CONTRAST (06/26/13) CT THORAX W/DYE (06/26/13) CULTURE SCREEN ONLY (05/22/13) DX MAMMO INCL CAD UNI (03/30/18) EGD BIOPSY SINGLE/MULTIPLE (05/22/13) EMERGENCY DEPT VISIT (02/22/17) SCR MAMMO BI INCL CAD (03/28/18) X-RAY EXAM SERIES ABDOMEN (05/22/13) Problem List Initiated/Reviewed/Updated: Yes My Orders Last 24 Hours: My Active Orders 01/09/19 11:43 Calcium Carbonate [Tums] 1,000 mg PO Q2HR PRN Furosemide [Lasix] 40 mg IVPUSH ONETIME ONE Plan: ASSESSMENT AND PLAN - Hypoxia - secondary to volume overload. Clinically improving but still requiring a small amount of supplemental oxygen. I'm hopeful that additional diuresis this afternoon should get her back close to her baseline. -Furosemide 40 mg IV 1 now -Monitor intake and output -Incentive spirometer -Supplement oxygen as needed Splenic laceration with anemia due to blood loss - hemoglobin stable. Pain well- controlled. -Postoperative care per surgical team Geovanny Courtney M.D.
[2019-01-09] MEDS: Calcium Carbonate 500 MG Tab.Chew PO PRN ×3 (12:10→18:27)
[2019-01-09] MEDS ORDERED: Furosemide 40 MG/4 ML VIAL IVPUSH ONE (12:30)
[2019-01-09] MEDS ORDERED: Potassium Chloride 20 MEQ Tab.ER PO ONE (14:30)
[2019-01-09] MEDS: Ondansetron 4 MG/2 ML SDV IVPUSH PRN (20:33)
[2019-01-09] MEDS ORDERED: Bisacodyl 10 MG Supp RECTAL ONE (23:13)
[2019-01-09] MEDS ORDERED: Bisacodyl 10 MG Supp RECTAL PRN (23:14)
[2019-01-10] MEDS: Acetaminophen/HYDROcodone 325-5 MG Tab PO PRN ×5 (04:57→21:25)
[2019-01-10] MEDS ORDERED: Furosemide 20 MG/2 ML VIAL IVPUSH ONE ×2 (07:35→10:15)
[2019-01-10] MEDS: Bisacodyl 5 MG Tab PO SCH ×2 (08:51→21:18)
[2019-01-10] MEDS: Hydrochlorothiazide 25 MG Tab PO SCH (08:52)
[2019-01-10] MEDS: Docusate Sodium 100 MG Cap PO SCH ×2 (08:52→21:18)
[2019-01-10] MEDS ORDERED: Potassium Chloride 20 MEQ Tab.ER PO SCH (09:00)
--- NOTE | 2019-01-10 13:03 | DISCH ---
ADDENDUM: Mary was discharged on 01/08/2019, but oxygen on activity and without oximetry on activity and without O2 was 78% on room air. She had an Internal Medicine/Hospitalist consult and was treated for hypoxia, which was thought to be multifactorial with contribution from mild volume overload and atelectasis. She was given Lasix, and potassium was replaced on 01/08/2019, was repeated on 01/09/2019, and on 01/09/2019, she was off oxygen, except for a short period during the night. After being up, she developed some left upper quadrant pain, and her oxygen did go down to 80. Oxygen was put on for a short period and then was able to be removed. Started having small BMs, is passing more flatus. Prior to discharge, she was given Lasix 20 mg IV and KCl 40 mEq p.o. See copy of discharge dictation and summary from 01/08/2019. There are no new medication changes or changes in discharge planning.
[2019-01-11] MEDS: Acetaminophen/HYDROcodone 325-5 MG Tab PO PRN ×2 (02:03→06:20)
[2019-01-11 07:06] VITALS: BP 101/68; PULSE 86
--- NOTE | 2019-01-11 07:51 | PN ---
DATE OF SERVICE: 01/11/2019 SUBJECTIVE: Mary developed abdominal pain, bloating. Was unable to eat any solid foods yesterday. She was not passing any flatus, so her discharge was canceled. This morning early a.m., she did pass a little bit of flatus. She still is feeling like she needs to have a bowel movement. Her oral intake was 820, urine output 2100. She consumed 25% of breakfast, 25% of lunch and 50% of dinner. Labs this morning, hemoglobin 10. Potassium was 3.1. REVIEW OF SYSTEMS: Remainder of review of systems negative for any pertinent positives and negatives. OBJECTIVE: GENERAL: Mary (Marine) is a pleasant 68-year-old female. VITAL SIGNS: TPR is 96.6, 86, 18, blood pressure 101/68. HEENT: Negative. NECK: Supple. HEART: Regular rate and rhythm. LUNGS: Clear. ABDOMEN: Slightly distended. Tenderness in the left upper quadrant. EXTREMITIES: Without peripheral edema. ASSESSMENT: SP colonoscopy, resolution of perisplenic hemorrhage, ileus, fluid retention and hypokalemia. PLAN: KCl 40 mEq p.o. b.i.d. Continue bowel stimulation and encouraged to increase liquids. We will evaluate p.r.n. or in a.m. Oneida Prabhakar PA-C /[id number]
[2019-01-11] MEDS: Docusate Sodium 100 MG Cap PO SCH (08:50)
[2019-01-11] MEDS: Bisacodyl 5 MG Tab PO SCH (08:50)
[2019-01-11] MEDS: Hydrochlorothiazide 25 MG Tab PO SCH (08:50)
[2019-01-11] MEDS ORDERED: Potassium Chloride 20 MEQ Tab.ER PO SCH (09:00)
--- NOTE | 2019-01-12 07:36 | DISCH ---
Mary had a large bowel movement after morning rounds and would like to be discharged. Discharge plan already submitted and dictated. Order placed to be discharged on 01/11/2019. See copy of discharge dictation and progress note from 01/11/2019.
--- NOTE | 2019-01-12 18:09 | PN ---
DATE OF SERVICE: 01/09/2019 The patient's discharge was held yesterday due to some relatively poor oxygenation. She was felt most likely to be having some element of fluid overload and was given some diuretics per Dr. Courtney. She did have a net diuresis of over 2 L. Clinically, she is still little bit low in terms of oxygenation this morning. We will recheck some labs. We will give her some additional dose of Lasix this morning, along with some bowel stimulation. We will keep her here today I think and allow some further fine tuning of her fluid status over the next 24 hours. Arpit Moore MD /[id number]
--- NOTE | 2019-01-13 00:11 | OR ---
DATE OF PROCEDURE: 01/05/2019 PREOPERATIVE DIAGNOSIS: History of colon polyps. POSTOPERATIVE DIAGNOSIS: History of colon polyps with recurrent small polyps x3 (ascending colon x2 and distal sigmoid colon). OPERATIVE PROCEDURE: Flexible colonoscopy with polypectomy by snare technique x3. ANESTHESIA: IV sedation. INDICATION FOR PROCEDURE: This is a 68-year-old female presenting with indication for a followup colonoscopy. Plan is to proceed with a colonoscopy with biopsies and/or polypectomy as indicated. Potential risks of the procedure including bleeding and perforation were discussed and the patient wishes to proceed. DETAILS OF PROCEDURE: The patient was taken to the operating room and placed in a left lateral decubitus position. IV sedation was administered after which the digital rectal exam was performed which was unremarkable. The colonoscope was then passed into the rectum with retroflexion revealing uncomplicated hemorrhoidal columns. The scope was eventually passed to the level of the cecum. The prep was fairly good with only a small amount of liquid stool present. To that level, there were no areas of diverticular disease or colitis. The patient did have 3 small polyps, these were all roughly 3 mm in size. Two of these were in the ascending colon and one in the distal sigmoid colon, all 3 were excised by means of cautery with snare technique and sent for histologic evaluation. The scope was then withdrawn and the above findings were reconfirmed. No complications were evident. The patient was taken to the recovery room in satisfactory condition. Arpit Moore MD /[id number]
== END 2019-01-11 10:30 | disposition home or self-care (01) | DRG 920 ==
LOC: JP.SDS 06:32 → JP.ICU 15:00 → JP.MS 01-06 10:28
PROVIDERS: ADMIT Surgery; ATTEND Surgery
PROC: 0DBK8ZX Excision of Ascending Colon, Via Natural or Artificial Opening Endoscopic, Diagnostic (ICD-10-PCS; principal; 2019-01-05)
PROC: 0DBN8ZX Excision of Sigmoid Colon, Via Natural or Artificial Opening Endoscopic, Diagnostic (ICD-10-PCS; 2019-01-05)
DX: K91.71 Accidental puncture and laceration of a digestive system organ or structure during a digestive system procedure (principal); D78.22 Postprocedural hemorrhage of the spleen following other procedure; K56.7 Ileus, unspecified; R10.9 Unspecified abdominal pain; D62 Acute posthemorrhagic anemia; D12.2 Benign neoplasm of ascending colon; D12.5 Benign neoplasm of sigmoid colon; Z86.010 Personal history of colon polyps; N39.3 Stress incontinence (female) (male); R01.1 Cardiac murmur, unspecified; E78.5 Hyperlipidemia, unspecified; I45.81 Long QT syndrome; I10 Essential (primary) hypertension; E87.70 Fluid overload, unspecified; R09.02 Hypoxemia; E87.6 Hypokalemia; K21.9 Gastro-esophageal reflux disease without esophagitis; K52.839 Microscopic colitis, unspecified; Z78.0 Asymptomatic menopausal state; H54.7 Unspecified visual loss; K44.9 Diaphragmatic hernia without obstruction or gangrene; M19.90 Unspecified osteoarthritis, unspecified site; M85.80 Other specified disorders of bone density and structure, unspecified site; E66.9 Obesity, unspecified; Z68.32 Body mass index [BMI] 32.0-32.9, adult; Z87.891 Personal history of nicotine dependence; Z79.82 Long term (current) use of aspirin; Z88.1 Allergy status to other antibiotic agents; Z90.49 Acquired absence of other specified parts of digestive tract
CPT/HCPCS: 36415; 45385; 74176; 80053; 85018; 85027; 88305; A9270; J2250; J2405; J2704 ×2; J3010; J3410; J7042; 51702; 71045; 71045-26; 74177; 80048; 83735; 83880; 84100; 85025; 86850; 86900; 86901; 86920; 86922; 93306; 94762; J1170; J1940; J3475; J3490; J7030; J7050

== ENCOUNTER 2021-12-11 08:50 | Day surgery (SDC) | payer MEDICARE, BC ==
[2021-12-11] MEDS ORDERED: fentaNYL 100 MCG/2 ML SDV ONE (09:13)
[2021-12-11] MEDS ORDERED: Midazolam 1 MG/ML 2 ML SDV ONE (09:13)
[2021-12-11] MEDS ORDERED: Propofol 200 MG/20 ML SDV ONE (09:13)
[2021-12-11] MEDS ORDERED: Lactated Ringers 1,000 ML IV SCH (10:00)
[2021-12-11 11:37] VITALS: BP 128/73; PULSE 71
== END 2021-12-11 12:00 | disposition home or self-care (01) ==
LOC: JP.SDS 08:50
PROVIDERS: ATTEND Family Medicine
DX: Z12.11 Encounter for screening for malignant neoplasm of colon (principal); I10 Essential (primary) hypertension; E78.5 Hyperlipidemia, unspecified; E66.9 Obesity, unspecified; Z88.1 Allergy status to other antibiotic agents; Z68.32 Body mass index [BMI] 32.0-32.9, adult; Z86.010 Personal history of colon polyps; Z98.890 Other specified postprocedural states
CPT/HCPCS: G0105; J2250; J2704; J3010; J7120

== ENCOUNTER 2022-12-09 09:00 | Emergency (ER) | payer MEDICARE, BC ==
[~2022-12-09 09:00] MED LIST: Sodium Chloride 0.9% 10 ML Syringe FLUSH PRN
[2022-12-09] MEDS ORDERED: Nitroglycerin 0.4 MG Tab.SL SL ONE (09:01)
[2022-12-09] MEDS ORDERED: Aspirin 81 MG Tab.Chew PO ONE (09:01)
[2022-12-09 09:13] LABS: BASOPHILS ABSOLUTE AUTO 0.08 K/uL (0.00-0.10); BASOPHILS PERCENT AUTO 0.8 % (0.1-1.3); EOSINOPHILS ABSOLUTE AUTO 0.16 K/uL (0.00-0.40); EOSINOPHILS PERCENT AUTO 1.7 % (0.0-5.4); IMMATURE GRAN ABSOLUTE AUTO 0.04 K/uL (0.00-0.23); IMMATURE GRAN PERCENT AUTO 0.4 % (0.0-0.7); LYMPHOCYTES ABSOLUTE AUTO 1.91 K/uL (0.8-3.3); LYMPHOCYTES PERCENT AUTO 20.3 % (11.4-47.7); MEAN CORPUSCULAR HEMOGLOBIN 33.6 pg (31.6-35.5); MEAN CORPUSCULAR HGB CONC 33.3 g/dL (31.6-35.5); MEAN CORPUSCULAR VOLUME 100.7 fL (81.4-99.0); MONOCYTES ABSOLUTE AUTO 0.83 K/uL (0.20-0.90); MONOCYTES PERCENT AUTO 8.8 % (3.3-12.6); PLATELET COUNT,PLT 287 K/uL (130-375); RED BLOOD CELL COUNT 4.17 M/uL (3.77-5.24); WHITE BLOOD CELL COUNT,WBC 9.4 K/uL (3.2-11.0)
[2022-12-09] MEDS ORDERED: Acetaminophen 500 MG Tab PO ONE (09:25)
[2022-12-09 09:32] LABS: PROTHROMBIN TIME 10.5 sec (9.2-10.6); PTT,PARTIAL THROMBOPLSTIN TIME 26.5 sec (21.8-27.3)
[2022-12-09 09:35] LABS: ANION GAP 7.2 mmol/L (5.0-14.0); BLOOD UREA NITROGEN,BUN 14 mg/dL (7-18); CALCIUM 9.3 mg/dL (8.5-10.1); CARBON DIOXIDE,CO2 31 mmol/L (21-32); CHLORIDE,CL 102 mmol/L (100-108); CREATININE 0.8 mg/dL (0.6-1.0); ESTIMATED GFR 79 mL/min (>60); GLUCOSE RANDOM 100 mg/dL (74-106); POTASSIUM,K 4.3 mmol/L (3.6-5.2); SODIUM,NA 140 mmol/L (140-148)
[2022-12-09 10:14] VITALS: BP 152/66; PULSE 54
== END 2022-12-09 10:28 | disposition home or self-care (01) ==
LOC: JP.ED 09:00
DX: R07.89 Other chest pain (principal); R00.1 Bradycardia, unspecified; E78.5 Hyperlipidemia, unspecified; I10 Essential (primary) hypertension; Z87.891 Personal history of nicotine dependence; M19.90 Unspecified osteoarthritis, unspecified site; E66.9 Obesity, unspecified; Z88.1 Allergy status to other antibiotic agents; Z79.82 Long term (current) use of aspirin; Z79.899 Other long term (current) drug therapy
CPT/HCPCS: 36415; 71045; 80048; 83735; 84484; 85025; 85610; 85730; 99285; A9270; 93017